=== PATIENT | male | born 1955 | race African-American/Black ===

== ENCOUNTER 2016-08-29 22:47 | Emergency (ER) | payer SELFPAY ==
[~2016-08-29] VITALS: Ht 190.5 cm; Wt 91.0 kg
[2016-08-30 02:50] VITALS: BP 139/90
== END 2016-08-30 02:55 | disposition home or self-care (01) ==
LOC: ER 22:47
DX: S01.81XA Laceration without foreign body of other part of head, initial encounter (principal); Y04.8XXA Assault by other bodily force, initial encounter; Y93.89 Activity, other specified; Y92.89 Other specified places as the place of occurrence of the external cause; Y99.8 Other external cause status
CPT/HCPCS: 12014; 70450; 70486; 99284; Z7610